=== PATIENT | female | born 1955 | race Asian ===

== ENCOUNTER 2018-08-31 05:40 | Inpatient (IN) | payer OTHER ==
[~2018-08-31] VITALS: Ht 147.3 cm; Wt 69.4 kg
--- NOTE | ~2018-08-31 | O ---
[facility] [place] [address] OPERATIVE REPORT Name: SHAUN VALENCIA Room #: 150-7 [facility] M.R.#: [id number] Admission: 08/31/18 ������������������ Attend Phys: Roberto Carlos Painting MD Discharge: ������������������ Date of : 53 Report #: [id number] THIS REPORT FOR: //name// CC: Ellen Painting DATE OF SERVICE: 08/31/2018 PREOPERATIVE DIAGNOSIS: Right knee medial compartment osteoarthritis. POSTOPERATIVE DIAGNOSIS: Right knee medial compartment osteoarthritis. PROCEDURE: Right medial compartment knee arthroplasty using Navio robotic assistance. SURGEON: Roberto Carlos Painting MD. MACHINE OPERATOR REPLANTER: None. ANESTHESIA: LMA with an adductor canal block. IMPLANTS: Bach and Nephew size 2 Journey Oxinium medial femoral component and a size 1 tibia and a size 9 polyethylene. TOURNIQUET TIME: 41 minutes. ESTIMATED BLOOD LOSS: 25 mL. COMPLICATIONS: None. SPECIMENS: None. CONDITION UPON LEAVING THE OPERATING ROOM: Stable. INDICATIONS FOR PROCEDURE: The patient is a 63-year-old female with severe right knee medial compartment osteoarthritis. She failed conservative measures for this and after discussion with her, she elected for right medial compartment knee arthroplasty. DESCRIPTION OF PROCEDURE: Risks, benefits, alternatives, complications were discussed in detail with the patient including but not limited to risk of anesthesia, risk of damage to nerves, arteries, blood vessels, risk for infection, bleeding, risk for continued knee pain and need for reoperation. Informed consent was obtained from the patient. Right knee was appropriately marked in the preoperative holding area. IV Ancef was given for preoperative antibiotics. Adductor canal block was placed by Anesthesia. She was brought to [facility] [address] [place] [address] OPERATIVE REPORT Name: SHAUN VALENCIA Room #: 150-7 [facility] M.R.#: [id number] Admission: 08/31/18 ������������������ Attend Phys: Roberto Carlos Painting MD Discharge: ������������������ Date of : 53 Report #: [id number] the Operating Room and placed in supine position on operating room table. LMA anesthesia was induced without complication. Tourniquet was placed on the right thigh. Right lower extremity was prepped and draped in normal sterile fashion. Timeout was performed properly identifying the patient, procedure, as well as the instrumentation and implants. All in the operating room were in agreement. Right lower extremity was exsanguinated, tourniquet was inflated. Tourniquet time was 41 minutes. Standard approach to the medial knee was made with 10 blade through the skin. Dissection was taken down sharply to the fascia and deep flaps were developed medially and laterally. Fresh 10 blade was used to make a medial parapatellar arthrotomy and the knee was inspected. There was severe medial compartment osteoarthritic change. Lateral compartment was well maintained. ACL was intact. 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 It was decided to proceed with medial compartment arthroplasty. Reference pins were placed in the femur and the tibia and the knee was digitally mapped using the Ayi Laile robotic system. We sized a size 2 femur and a size 1 tibia with a 9 polyethylene. After acceptance of the intraoperative plan, the femoral and tibial resections were made with the Navio bur. The tibia was sized, found to be size 1 and size 1 tibial trial was placed and then drilled and a size 2 femoral trial was placed. This was then trialed with size 8 and then a size 9 polyethylene and size 9 polyethylene demonstrated 1 mm laxity throughout range of motion and it was felt to have the best fit. After this, trial components were removed. Bony ends were thoroughly irrigated with normal saline. A final size 1 tibia, size 2 Journey Oxinium medial femoral component were cemented in place using standard cementation techniques. While the cement cured, a periarticular injection consisting of morphine, ropivacaine, epinephrine and Toradol was placed around the knee joint capsule. After the cement cured, tourniquet was deflated. Hemostasis was obtained with Bovie cautery. A final size 9 polyethylene was placed. A gram of vancomycin was placed deep in the joint. The fascia was closed with 0 Vicryl, skin was closed with 2-0 Vicryl and 3-0 Monocryl. Dermabond and a CHRISTIANO dressing was applied. The patient tolerated this procedure well and went to recovery room under care of Anesthesia postoperatively. ��������������������������������������������� ���������������������������������������� By: ��������������������������������������������� [id number] Roberto Carlos Painting MD /nt
[~2018-08-31 05:40] MED LIST: ALBUTEROL2.5 MG/31 INH; AMLODIPINE BESY10 MG PO; BREO ELLIPTA 21 EACH INH; CLARITIN10 MG PO; CYCLOBENZAPRINE5 MG PO; ERGOCALCIF50000 UNIT PO; OMEPRAZOLE 20 M20 M1 PO; SINGULAIR 10 MG10 M1 PO; ZOLOFT50 MG PO
[2018-08-31 08:42] VITALS: BP 137/64
[2018-08-31 13:54] VITALS: BP 97/48
--- NOTE | 2018-08-31 13:54 | NUR ---
Pt arrived to floor from recovery room at 1320 per bed in stable condition. Post op assessment completed.O2 sat on room air was 86%.Pt was placed on 2lnc. Ice water given per pt request and late lunch ordered.Will continue to monitor.
[2018-08-31 14:02] VITALS: BP 92/56
[2018-08-31 16:00] VITALS: BP 95/55
[2018-08-31 20:01] VITALS: BP 102/59
--- NOTE | 2018-08-31 23:24 | NUR ---
ASSESSMENT COMPLETED. PT IS ALERT AND ORIENTED. PLEASANT. A LITTLE DOWSY. PT ASSISTED TO BSC WITH ASSIST X 1 WITH GAITBELT.PT DID NOT VOID.PT OFFERED MORE DRINKS. IVF INFUSING. AFEBRILE. BP LOW AT HS- AMLODIPINE ON HOLD.PT WITH CHRISTIANO DRSG TO R KNEE. ICE LORIN IN PLACE. REPORT GIVEN TO ERIKA WELLER AT AROUND 2300HRS.
--- NOTE | 2018-09-01 03:48 | NUR ---
PATIENT ALDERT AND ORIENTED X4. C/O PAIN, MED GIVEN. UP TO BSC WITH ASSIST OF 1. DRESSING ON R KNEE D/I. SLEPT LITTLE THIS SHIFT.
[2018-09-01 04:43] VITALS: BP 117/54
[2018-09-01 05:12] LABS: HEMATOCRIT 37.6 % (37.0-47.0); HEMOGLOBIN 12.2 gm/dL (12.0-15.0); MCH 28.5 pg (26.0-34.0); MCHC 32.4 g/dL (28.0-37.0); RBC 4.27 mil/uL (4.20-5.00); RDW 13.1 % (10.5-14.5); WBC 26.8 thou/uL (4.0-11.0)
[2018-09-01 07:29] VITALS: BP 114/54
--- NOTE | 2018-09-01 07:45 | EKG ---
[address] [address] ELECTROCARDIOGRAM REPORT Name: SHAUN VALENCIA Room #: 427-P ADM IN M.R.#: [id number] ������������������ Admission: 08/31/18 ������������������ Attend Phys: Roberto Carlos Painting MD Discharge: ������������������ Date of : 53 Report #: [id number] ����������������������������������������������������������������� [id number] THIS REPORT FOR: //name// [facility] Test Date: 2018-08-31 Test Time: 09:29:18 Pat Name: SHAUN VALENCIA Department: Room: [facility] Gender: F Community Relations Director: [place] : 1955 Requested By: Roberto Carlos Painting Order Number: [id number] MD: Mohinder Rodriguez Measurements Intervals Luckey Rate: 60 P: 31 [place]: 168 QRS: 23 QRSD: 90 T: 1 QT: 420 QTc: 420 Interpretive Statements Sinus rhythm Nonspecific T wave abnormality Early R-wave progression No previous ECG available for comparison Electronically Signed On 09-01-2018 7:45:13 CDT by Mohinder Rodriguez [email or web address] ��������������������������������������������� <ELECTRONICALLY SIGNED> ���������������������������������������� By: Mohinder Rodriguez MD, [facility] ��������������������������������������������� 09/01/18 0745 8 8 Mohinder Rodriguez MD, FACC /EPI
[2018-09-01 09:00] VITALS: BP 114/54
[2018-09-01 12:39] VITALS: BP 114/54
[2018-09-01 14:40] VITALS: BP 114/54
[2018-09-01 17:43] VITALS: BP 114/54
--- NOTE | 2018-09-01 17:43 | NUR ---
PT DISCHARGED AT 1710 PATIENT TAKEN VIA W/C TO MAIN ENTRANCE. WITH ASSIST OF THIS NURSE AND CLOTH SPREADER AND SMALL STEP STOOL GOT INTO FAMILY VAN. STATES LEFT LEG HURTS PT HAS NEG HOMANS SIGN. PT STATES IS SORE NORE SO THAN RIGHT THAT HAD HIP REPLACEMENT. GIVEN PRN PAIN MED AT DISCHARGE. PICCO DRSG INTACT.
== END 2018-09-01 17:51 | disposition home or self-care (01) | DRG 470 ==
LOC: TBA 05:40 → OR 05:40 → 4E 13:23 → OR 16:21 → 4E 09-01 17:51
PROVIDERS: ADMIT Orthopaedic Surgery
PROC: 0SRC0L9 Replacement of Right Knee Joint with Medial Unicondylar Synthetic Substitute, Cemented, Open Approach (ICD-10-PCS; principal; 2018-08-31)
PROC: 8E0Y0CZ Robotic Assisted Procedure of Lower Extremity, Open Approach (ICD-10-PCS; principal; 2018-08-31)
DX: M17.11 Unilateral primary osteoarthritis, right knee (principal)
CPT/HCPCS: 10783; 50010; 50101; 50415; 50954; 51130; 51225; 53078; 53370; 54118; 56527; 56528; 57095; 57103; 57110; 57127; 57180; 62110; 62900; 64043; 65060; 70005

== ENCOUNTER 2019-04-09 15:17 | Inpatient (IN) | payer OTHER ==
[~2019-04-09] VITALS: Ht 147.3 cm; Wt 73.9 kg
[2019-04-09] VITALS (8 sets, daily range): BP systolic 116–129; BP diastolic 52–67
--- NOTE | 2019-04-09 19:59 | NUR ---
ASSUMED CARE OF THE PT AT 1845. PT WANTED WATER AND CRACKERS. NO C/O PAIN. SCD'D PLACED AND PT ON 2.0L NASAL CANNULA. CALL LIGHT WITH REACH, BED IN THE LOWEST POSITION AND FALL PRECAUTIONS IN PLACE. GAVE REPORT TO NOC NURSE.
[2019-04-10 00:36] VITALS: BP 127/55
--- NOTE | 2019-04-10 02:58 | NUR ---
ASSUMED CARE OF PT @1900. PT ASSESSED AT START OF SHIFT. CHRISTIANO DRESSING AND HEMO VAC IN PLACE. ADMISSION DONE AND CHARTED. PT ORIENTED TO THE ROOM. FAMILY VISITING. IV INTACT AND FLUIDS INFIUSING. PAIN MED GIVENX1 THIS SHIFT. NIGHT TIME BP NOT GIVEN DUE TO LOW BP AND PER PT REQ. PT GETS SCHEDULED BX. UP WITH ASSITX1 TO THE BSC. FALL PREC IN PLACE AND CALL LIGHT IN REACH WILL CONT WITH POC TILL EOS.
[2019-04-10 04:14] VITALS: BP 127/59
[2019-04-10 06:31] LABS: BASOPHILS 0.5 % (0.0-2.0); LYMPHOCYTES 7.1 % (24.0-44.0); MCHC 33.3 g/dL (28.0-37.0); MCV 87.2 fL (80.0-100.0); MONOCYTES 1.8 % (1.0-8.0); PLATELET COUNT 327 thou/uL (150-400); POLYS 90.6 % (36.0-66.0); RBC 4.13 mil/uL (4.20-5.00); RDW 13.8 % (10.5-14.5); WBC 9.9 thou/uL (4.0-11.0)
[2019-04-10 08:40] VITALS: BP 126/65
[2019-04-10 09:03] LABS: ALBUMIN 3.2 g/dL (3.4-5.0); CALCIUM 9.7 mg/dL (8.5-10.1); CREATININE 0.9 mg/dL (0.6-1.0); POTASSIUM 4.4 mmol/L (3.5-5.1); TOTAL BILIRUBIN 0.3 mg/dL (<0.1-1.0); TOTAL PROTEIN 7.8 g/dL (6.4-8.2)
--- NOTE | 2019-04-10 12:35 | HC ---
[facility] [place] [address] CONSULTATION Name: SHAUN VALENCIA Room #: 442-P [facility] M.R.#: [id number] Admission: 04/09/19 Attend Phys: Roberto Carlos Painting MD Discharge: Date of : 53 Report #: [id number] THIS REPORT FOR: cc: Ellen Crump MD, Ghazal A. MD Geha, Daniel J. MD ~ THIS REPORT FOR: //name// CC: Ellen Painting DATE OF SERVICE: 04/09/2019 INFECTIOUS DISEASE CONSULTATION REASON FOR CONSULTATION: I was asked to evaluate concerning right knee septic arthritis. HISTORY OF PRESENT ILLNESS: The patient is a 63-year-old with underlying degenerative arthritis, who on 08/31 of this past year underwent a right medial compartment prosthetic joint revision. No intraoperative complications were noted. She did well postoperatively early on, although she continued to have some discomfort in her right leg. Actually, she did report discomfort in both knees and her back. She went to typical rehabilitation program without issue. Due to persistent arthritis symptoms, she was seen in an outpatient clinic where she underwent chiropractic manipulation as well as injections into both knees. She was not totally clear on the types of injection, but she thought it was hyaluronic acid initially, which she received 4 injections in February. She underwent 4 further injections of a different material in March. She states that this was not corticosteroids. Her last injection was on 04/02 of this year. She did know while on those injections, she was not improving much regarding her knee discomfort. After the 04/02/2019 injection, she noticed increased pain the night after and swelling. There was beginning of erythema. No fever or chills. She received a lidocaine injection subsequent day and needle aspiration of the fluid. She was then sent to the Emergency Room at [facility]. Unclear what transpired after this. Once in the Emergency Room, Dr. Painting was notified and he had her follow up the following day where he obtained aspiration of the fluid. This was with high leukocyte count, reportedly over 99,000 cells. He did not have culture results back yet. Taken to surgery today for incision and drainage and exchange of the polyethylene components. There were no intraoperative complications. There was purulent fluid within the joint. I did discuss the case with Dr. Painting postoperatively. She did receive cefazolin perioperatively. No fever, chills or sweats. She has had ongoing swelling in the knee. She has had no other joints having similar findings. She has had no other trauma. No recent dental work. No genitourinary issues or GI issues. [address] [address] CONSULTATION Name: SHAUN VALENCIA Room #: 442-P [facility] M.R.#: [id number] Admission: 04/09/19 Attend Phys: Roberto Carlos Painting MD Discharge: Date of : 53 Report #: [id number] PAST MEDICAL HISTORY: Gastroesophageal reflux, hypertension, , bilateral cataract surgery, tubal ligation, asthma, depression. ALLERGIES: LATEX, TRAMADOL. MEDICATIONS: As noted on her MAR, now including cefazolin. FAMILY HISTORY: Noncontributory. SOCIAL HISTORY: She has been in [place] for the past 40 years. No tuberculosis history, no HIV risk factors. Nonsmoker. No significant alcohol intake. 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 REVIEW OF SYSTEMS: Ten-point review was negative other than what has been described above. PHYSICAL EXAMINATION: VITAL SIGNS: Afebrile and hemodynamically stable. GENERAL: She is alert and cooperative and pleasant, in no acute distress. Moderately obese. SKIN: Without rash or decubitus. No palpable adenopathy. EYES: Without scleral icterus. MOUTH: Without mucositis. NECK: Supple, with no thyromegaly or mass. LUNGS: Clear to auscultation. HEART: Regular, without murmur, gallop or rub. ABDOMEN: Soft and nontender with no hepatosplenomegaly or mass appreciated. EXTREMITIES: Right lower extremity with incision well approximated. There is a Hemovac drain in place. No significant peripheral edema. Pulses in the right foot were 4+. Sensation in the toes normal to fine touch. Strength in the foot was within normal limits. PSYCHIATRIC: Mood was normal. BACK: Nontender. No CVA tenderness. IMPRESSION: 1. 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 I am awaiting stains and cultures. The patient has had several injections. Therefore, we will need to consider both gram-positive and gram-negative organisms. 2. Degenerative arthritis. 3. Chronic pain syndrome. 4. Hypertension. RECOMMENDATIONS: We will continue with vancomycin and cefepime while awaiting culture results. We will arrange outpatient infusion once the patient is stable [facility] [address] [place] [address] CONSULTATION Name: SHAUN VALENICA Room #: 442-P [facility]..#: [id number] Admission: 04/09/19 Attend Phys: Roberto Carlos Painting MD Discharge: Date of : 53 Report #: [id number] for discharge. For now, we will continue treatment as a one stage debridement with polyethylene exchange. <ELECTRONICALLY SIGNED> By: Jay Dobbins MD 04/10/19 1235 [id number] [id number] Jay Dobbins MD /nt
--- NOTE | 2019-04-10 16:13 | NUR ---
PT ADMITTED RELATED TO RT KNEE EFFUSION/INFECTION. CM REVIEWED CHART AND SPOKE WITH CARE TEAM. CM MET WITH PT AND DTR AT BEDSIDE THIS DAY. THEY INDICATED THAT PT RESIDES IN A HOUSE WITH HER SPOUSE WITH 2 STEPS TO ENTER AND ALL NEEDS ON 1 LEVEL ONCE INSIDE. PT INDICATED SHE HAD A FWW FOR HOME USE. DTR INDICATED THAT SHE IS A POST ACUTE FACILITY LIAISON AND THAT THEY ARE INTERESTED IN PT GOING TO ACUTE REHAB UPON DC. CM INDICATED THAT WE COULD SEE WHAT CARE TEAM ARE RECOMENDING AND ALSO THAT PT'S INSURANCE [facility] USUALLY DOESN'T AUTH ACUTE REHAB. THEY INDICATED THEY WERE INTERESTED IN [place] OR [facility] OR [facility] SN[facility]. PT INDICATED THAT PT MIGHT BE ABLE TO DC HOME WITH OP. CM TO FOLLOW INDICATED WITH DC PLANNING.
[2019-04-10 17:37] VITALS: BP 136/65
[2019-04-10 18:59] VITALS: BP 139/72
--- NOTE | 2019-04-10 19:41 | NUR ---
Assumed care of pt at 0700. Pt a&ox4. C/o pain in right knee. Prn pain meds adminsitered. Dressing c/d/i. Pt worked with physical therapy today. NATALIA hartman and SCDs in place. Fluids and antibiotics infusing. Call light within reach. Family at bedside. Fall precautions in place.
--- NOTE | 2019-04-11 02:47 | NUR ---
ASSESSED AT START OF SHIFT PT A&OX4 WITH C/O OF PAIN IN RT KNEE PAIN MEDS GIVE SEE EMAR. PT UP WITH ASSISTX1 TO THE BSC. IV INTACT FLUIDS AND ABX INFUISING. SCD'S AND ICE PACK IN PLACE. CHRISTIANO DRESSING INTACT AND NO DRAINAGE. LATEX ALLERGY SIGN ON THE DOOR. FALL PREC IN PLACE AND CALL LIGHT IN REACH WILL CONT WITH POC TILL EOS.
[2019-04-11 03:57] VITALS: BP 142/78
[2019-04-11 07:35] VITALS: BP 139/71
[2019-04-11 08:45] LABS: HEMATOCRIT 32.4 % (37.0-47.0); HEMOGLOBIN 10.6 gm/dL (12.0-15.0); MCH 28.6 pg (26.0-34.0); MCHC 32.8 g/dL (28.0-37.0); MCV 87.1 fL (80.0-100.0); RBC 3.71 mil/uL (4.20-5.00); RDW 13.5 % (10.5-14.5); WBC 9.7 thou/uL (4.0-11.0)
--- NOTE | 2019-04-11 12:21 | O ---
[facility] [place] [address] OPERATIVE REPORT Name: SHAUN VALENCIA Room #: 442-P ADM IN M.R.#: [id number] Admission: 04/10/19 Attend Phys: Roberto Carlos Painting MD Discharge: Date of : 53 Report #: [id number] THIS REPORT FOR: cc: Ellen Crump MD, Ghazal A. 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 PROCEDURE: Open irrigation and debridement, right partial knee arthroplasty with polyethylene exchange. SURGEON: Roberto Carlos Painting MD ACCOUNTS ADMINISTRATOR: Alice Curtis PA-C INDICATIONS FOR ACCOUNTS ADMINISTRATOR: Throughout the case, extensive retraction and manipulation of the knee was required. This was afforded to me by my corporate law assistant. ANESTHESIA: LMA. IMPLANTS: The 9 mm polyethylene was exchanged for a fresh 9 mm polyethylene. TOURNIQUET TIME: 21 minutes. ESTIMATED BLOOD LOSS: 25 mL. SPECIMENS: Cultures were taken x 2 and sent. CONDITION UPON LEAVING THE OPERATING ROOM: Stable. INDICATIONS FOR PROCEDURE: The patient is a 63-year-old female who underwent a right unicompartmental knee arthroplasty by me in August 2018. She did fairly well afterwards and at her visit with us in February 2019 was doing fairly well and still taking only meloxicam as needed. She is being treated at the [facility] in the past month and [facility] [address] [place] [address] OPERATIVE REPORT Name: SHAUN VALENCIA Room #: 442-P ADM IN M.R.#: [id number] Admission: 04/10/19 Attend Phys: Roberto Carlos Painting MD Discharge: Date of : 53 Report #: [id number] hyaluronic acid injections in the knee with most recent one being last week. She had increased pain and swelling in her knee and went to the Emergency Room and had labs drawn and had an elevated sed rate, CRP and WBC. We saw her in our clinic this past Tuesday and aspirated her knee and sent it for analysis and it showed a nucleated cell count 99,414 and 89% neutrophils. Given this overall picture, it was felt that she likely had an infection in her right knee medial compartment arthroplasty that based on her history and symptoms was deemed to be acute. So after discussion with she and her family, they elected for I and D of the knee with polyethylene exchange in hopes that we can salvage the unicompartmental knee arthroplasty. DESCRIPTION OF PROCEDURE: Risks, benefits, alternatives and complications were discussed in detail with the patient including but not limited to risk of anesthesia, risk of damage to nerves, arteries, blood vessels, risk for infection, bleeding, risk for continued knee pain, continued infection and need for 2-stage exchange. Informed consent was obtained from the patient. Right knee was appropriately marked in the preoperative holding area. Preoperative antibiotics were held until after intraoperative cultures were taken. She was brought to the operating room and placed in supine position on operating room table. LMA anesthesia was induced without complication. Tourniquet was placed on the right thigh. Right lower extremity was prepped and draped in normal sterile fashion. Timeout was performed properly identifying the patient and procedure as well as the instrumentation. All in the operating room were in agreement. Right lower extremity was elevated. Tourniquet was inflated. Tourniquet time was 21 minutes. The previous scar was used. This was opened with 10 blade through the skin. Dissection was taken down the fascia and deep flaps were developed medially and laterally. Fresh 10 blade was used to make a medial parapatellar arthrotomy and upon entering the joint, there was noted to be a large amount of purulent fluid. Cultures of this were taken x 2. Synovium was debrided with a rongeur. The polyethylene was removed and the knee was thoroughly irrigated with 9 liters of normal saline with bacitracin mixed in using pulse lavage. After this, a new 9 mm polyethylene was placed. Deep drain was placed in the joint. The tourniquet was deflated. Hemostasis was obtained with Bovie cautery. A gram of vancomycin was placed in the joint. The fascia was closed with 0 Vicryl, skin was closed with 2-0 Vicryl and skin chaz and a CHRISTIANO dressing was applied. The patient tolerated this procedure well and went to recovery room under care of anesthesia postoperatively. <ELECTRONICALLY SIGNED> By: Roberto Carlos Painting MD 04/11/19 1221 1709 [id number] Roberto Carlos Painting MD /gricelda
--- NOTE | 2019-04-11 12:36 | NUR ---
FAXED REFERRAL TO [facility] SPOKE WITH DEVON IN INTAKE THEY ARE OON WITH PT'S INSURANCE. FAXED REFERRAL TO [facility] SPOKE WITH LESLEY IN INTAKE SHE RECEIVED REFERRAL AND WILL REVIEW.
[2019-04-11 16:17] VITALS: BP 131/56
--- NOTE | 2019-04-11 17:16 | NUR ---
FAXED REFERRAL TO [facility] FOR IV ABX SPOKE WITH KRISTEL AND HE RAN INSURANCE AND PT IS COVERED 100%. FAXED REFERRAL TO [facility] RECEIVED CONFIRMATION AND LEFT MSG WITH INTAKE WILL F/U IN THE AM,. FAXED REFERRAL TO [facility] RECEIVED CONFIRMATION AND WILL F/U IN THE AM WITH FACILITY. FAXED REFERRAL TO [facility] RECEIVED CONFIRMATION AND WILL F/U IN AM WITH FACILITY. FAXED REFERRAL TO [facility] RECEIVED CONFIRMATION ADN WILL F/U WITH FACILTY IN THE AM.
--- NOTE | 2019-04-11 18:30 | NUR ---
PT ASSESSED AT START OF SHIFT. MOVING WELL. UP W/ WALKER AND STATES PAIN IS LESSENING. CHRISTIANO DSNG D&I. USING ICE PACK. PLAN FOR PT TO DC TOMORROW W/ IV HOME ANTIBIOTICS PER DR. BIANCHI. EATING AND DRINKING WELL.
[2019-04-11 19:15] VITALS: BP 142/69
--- NOTE | 2019-04-12 01:53 | NUR ---
ASSUMED PT CARE AT APPROX 1900PT C/O PAIN ON HER R KNEE,MANAGED WITH MED.DR BIANCHI HERE AND SAW PT,PT TO GET PICC LINE IN THE AM AND DC WITH HOME HEALTH ON IV ABX.PT ABLE TO MOVE SELF IN BED AND MAKE HER NEEDS KNOWN.DRSG ON HER R KNEE INTACT.SKIN AROUND THE INCISION SITE WARM,SWOLLEN AND TENDER TO TOUCH.PT SLEEPING ON HER BED AT THIS TIME.FALL PRECAUTIONS IN PLACE.CALL LIGHT WITHIN REACH.
[2019-04-12 04:50] VITALS: BP 135/65
[2019-04-12 06:08] LABS: HEMATOCRIT 33.7 % (37.0-47.0); HEMOGLOBIN 10.9 gm/dL (12.0-15.0); MCH 28.2 pg (26.0-34.0); MCHC 32.4 g/dL (28.0-37.0); MCV 87.1 fL (80.0-100.0); RBC 3.87 mil/uL (4.20-5.00); RDW 13.8 % (10.5-14.5); WBC 9.5 thou/uL (4.0-11.0)
[2019-04-12 08:10] VITALS: BP 145/72
[2019-04-12] MEDS ORDERED: NEURONTIN 300300 M1 PO (09:14)
[2019-04-12] MEDS ORDERED: ASPIR 8181 MG PO (09:14)
[2019-04-12 14:40] VITALS: BP 145/72
[2019-04-12 16:49] VITALS: BP 151/81
[2019-04-12 19:19] VITALS: BP 126/59
[2019-04-13 03:37] VITALS: BP 169/78
--- NOTE | 2019-04-13 05:04 | NUR ---
04/12/19 1900 ASSUMED CARE OF PT AFTER BEDSIDE REPORT 2044 ASSESSMENT COMPLETED, BUT CHARTED AT WRONG TIME. PT WITH NO COMPLEAINTS OF PAIN AT THIS TIME, RESTING IN BED AFTER UP TO BATHROOM WITH WALKER GAIT BELT AND STAND-BY ASSIST, DRESSING IN PLACE TO R HIP WITH ICE AND CHRISTIANO DRESSING, SCDS ON, PT WILL USE CALL LIGHT TO GET UP 2300 NEW IV STARTED TO L HAND SECONDARY TO PT BENDING ARM AND ALARMS BOTHERING HER. WILL CONTINUE WITH HOURLY ROUNDING
[2019-04-13 05:45] VITALS: BP 144/66
[2019-04-13 07:21] VITALS: BP 120/70
--- NOTE | 2019-04-13 07:55 | NUR ---
(04/12/19) ASSUMED CARE OF THE PT AT 0700. PT IS STANDBY ASSIST WITH GAIT BELT AND WALKER. PT HAS R AC DRY AND INTACT, CLEANED AROUND SITE. PT ASKED TO STAY INPT ADDITIONAL NIGHT, DOCTOR NOTIFIED. PAIN CONTROLLED AND UPDATED, SEE EMAR, PER PA. FALL PRECAUTIONS IN PLACE, BED IN LOWEST POSITION AND CALL LIGHT IS IWTHIN REACH. MONITORED PT AND GAVE REPORT TO NOC NURSE.
[2019-04-13 13:58] VITALS: BP 145/72
--- NOTE | 2019-04-13 14:20 | NUR ---
DISCHARGE/HOME HEALTH ORDERS FAXED TO [facility]. STACIE, INTAKE, NOTIFIED. STACIE TO FACILITATE PATIENTS HOME HEALTH NEEDS.
--- NOTE | 2019-04-13 18:01 | NUR ---
PROCEDURE PICC INSERTION. RISK, BENEFITS, AND ALTERNATIVE TREATMENT DISCUSSED WITH THE PATIENT. COMPUTER ORDER VERIFIED AND TIME OUT COMPLETED WITH LUCERO MONTOYA RN AT 1230. TEACHING GIVEN RELATED TO POSSIBLE COMPLICATIONS SUCH BLEEDING, INFECTION, CLOT, OR VESSEL PERFORATION. INSTRUCTION GIVEN RELATED TO CLABSI PREVENTION WITH PATIENT VOICING UNDERSTANDING. WRITTEN CONSENT OBTAINED. LITERATURE PROVIDED.SINGLE LUMEN PICC PLACED TO RUE BASILIC VEIN. ONE STICK AND NO COMPLICATIONS. PATIENT TOLERATED WELL. PICC LENGTH =37CM. EXT=0CM. PICC TIP VERIFIED DISTAL SVC PER CHEST XRAY. PATIENT'S NURSE NOTIFIED PATTIE WELLER THAT PICC OKAY TO USE.
== END 2019-04-13 16:18 | disposition home health service (06) | DRG 465 ==
LOC: OR 15:17 → 4S 18:59 → OR 04-10 10:56 → ENTRNSPT 04-13 15:30 → EDTRNSPTSTS 04-13 15:33 → 4S 04-13 16:18
PROVIDERS: Specialist; ADMIT Orthopaedic Surgery
PROC: 0SRC0MZ Replacement of Right Knee Joint with Lateral Unicondylar Synthetic Substitute, Open Approach (ICD-10-PCS; principal; 2019-04-09)
PROC: 0SPC0MZ Removal of Lateral Unicondylar Synthetic Substitute from Right Knee Joint, Open Approach (ICD-10-PCS; principal; 2019-04-09)
DX: T84.53XA Infection and inflammatory reaction due to internal right knee prosthesis, initial encounter (principal); K21.9 Gastro-esophageal reflux disease without esophagitis; I10 Essential (primary) hypertension; J45.909 Unspecified asthma, uncomplicated; F32.9 Major depressive disorder, single episode, unspecified; Y82.8 Other medical devices associated with adverse incidents; Y83.8 Other surgical procedures as the cause of abnormal reaction of the patient, or of later complication, without mention of misadventure at the time of the procedure; M19.90 Unspecified osteoarthritis, unspecified site; G89.4 Chronic pain syndrome; Y92.89 Other specified places as the place of occurrence of the external cause; Z98.42 Cataract extraction status, left eye; Z98.41 Cataract extraction status, right eye; Z88.8 Allergy status to other drugs, medicaments and biological substances; Z91.040 Latex allergy status; Z79.899 Other long term (current) drug therapy
CPT/HCPCS: 10102; 27000; 50010; 50101; 50415; 50954; 51412; 53078; 55389; 56528; 57095; 57103; 57180; 62110; 62900; 64043; 65060; 70005